=== PATIENT | male | born 1950 | race Caucasian/White ===

== ENCOUNTER 2016-12-27 09:50 | Emergency (ER) | payer OTHER ==
[~2016-12-27] VITALS: Ht 175.3 cm; Wt 90.1 kg
[~2016-12-27 09:50] MED LIST: Z.0.NO CURRENT MEDS
[2016-12-27 09:59] VITALS: BP 124/58; PULSE 90; RESP 18; TEMP 98.8; O2SAT 97
--- NOTE | 2016-12-27 10:41 | PD ---
HPI Chief Complaint: Musculoskeletal Complaint Time Seen by Provider: 10:26 Travel History International Travel<30 days: No Contact w/Intl Traveler<30days: No Traveled to known affect area: No History of Present Illness HPI 66yo M with no significant PMH presents to the ED with c/o left knee pain. Pt was walking to his car yesterday when he had pain in back of his knee that came around to the front. Does not remember twisting it. Denies any fall. States it was more swollen and swelling has improved with ice. Denies any fever, erythema, chest pain, sob, n/v, abdominal pain, focal weakness or numbness. Denies any history of gout. Took exedrin and it is starting to help. PFSH Past Medical History Medical History: Denies Significant Hx Heart Rhythm Problems: No Cardiac Catheterization: No Cardiovascular Problems: Yes High Cholesterol: No Congestive Heart Failure: No Diabetes: No Hypertension: No Musculoskeletal: Yes (scoliosis) Myocardial Infarction: No Past Surgical History Abdominal Surgery: Yes (HERNIORRHAPHY) Coronary Artery Bypass Graft: No Other Surgery: Yes (right hernia repair) Social History Alcohol Use: No Tobacco Use: No Substance Use: No Allergies-Medications (Allergen,Severity, Reaction): Coded Allergies: No Known Allergies (Verified , 12/27/16) Reported Meds & Prescriptions Reported Meds & Active Scripts Active Ibuprofen 600 Mg Tab 600 Mg PO Q8H PRN 5 Days Review of Systems Except as stated in HPI: all other systems reviewed are Neg Physical Exam Narrative GENERAL: 66yo M in mild distress. SKIN: Focused skin assessment warm/dry. HEAD: Atraumatic. Normocephalic. CARDIOVASCULAR: Regular rate and rhythm. No murmur appreciated. RESPIRATORY: No accessory muscle use. Clear to auscultation. Breath sounds equal bilaterally. GASTROINTESTINAL: Abdomen soft, non-tender, nondistended. MUSCULOSKELETAL: Left knee: +Edema. No erythema. Mildly warmer than right. Decreased ROM due to pain. Distal pulses intact. Sensation intact. NEUROLOGICAL: Awake and alert. No obvious cranial nerve deficits. Motor grossly within normal limits. Normal speech. PSYCHIATRIC: Appropriate mood and affect; insight and judgment normal. Data Data Last Documented VS Vital Signs Date Time Temp Pulse Resp B/P (MAP) Pulse Ox O2 Delivery O2 Flow Rate FiO2 12/27/16 16:52 69 16 68/ 97 Room Air 12/27/16 14:31 98.6 Orders Orders Knee, Ltd (1 Or 2vws) (12/27/16 ) Ketorolac Inj (Toradol Inj) (12/27/16 10:45) Lidocaine 1% Inj (50 Ml) (Xylocaine 1% I (12/27/16 11:45) Synovial Fl Cell Count + Diff (12/27/16 11:43) Synovial Fluid Crystals (12/27/16 11:43) Synovial Fluid Glucose (12/27/16 11:43) Synovial Fluid Total Protein (12/27/16 11:43) Complete Blood Count With Diff (12/27/16 12:29) Basic Metabolic Panel (Bmp) (12/27/16 12:29) Fluid Culture And Gram Stain (12/27/16 14:38) Labs Laboratory Tests Test 12/27/16 12:25 12/27/16 12:35 Synovial Fluid Color YELLOW Synovial Fluid Appearance MARKED Synovial Fluid WBC 81898 /MM3 Synovial Fluid RBC 160 /MM3 Synovial Fluid Neutrophils 98 % Synovial Fluid Lymphocytes 1 % Synovial Fluid Monocytes 1 % Synovial Fluid Crystals NONE White Blood Count 17.3 TH/MM3 Red Blood Count 4.81 MIL/MM3 Hemoglobin 14.4 GM/DL Hematocrit 42.5 % Mean Corpuscular Volume 88.3 FL Mean Corpuscular Hemoglobin 29.9 PG Mean Corpuscular Hemoglobin Concent 33.8 % Red Cell Distribution Width 11.9 % Platelet Count 231 TH/MM3 Mean Platelet Volume 7.9 FL Neutrophils (%) (Auto) 85.8 % Lymphocytes (%) (Auto) 5.6 % Monocytes (%) (Auto) 8.1 % Eosinophils (%) (Auto) 0.1 % Basophils (%) (Auto) 0.4 % Neutrophils # (Auto) 14.8 TH/MM3 Lymphocytes # (Auto) 1.0 TH/MM3 Monocytes # (Auto) 1.4 TH/MM3 Eosinophils # (Auto) 0.0 TH/MM3 Basophils # (Auto) 0.1 TH/MM3 CBC Comment DIFF FINAL Differential Comment Blood Urea Nitrogen 14 MG/DL Creatinine 1.00 MG/DL Random Glucose 124 MG/DL Calcium Level 9.0 MG/DL Sodium Level 136 MEQ/L Potassium Level 3.9 MEQ/L Chloride Level 102 MEQ/L Carbon Dioxide Level 27.4 MEQ/L Anion Gap 7 MEQ/L Estimat Glomerular Filtration Rate 74 ML/MIN MDM Medical Decision Making Medical Screen Exam Complete: Yes Emergency Medical Condition: Yes Differential Diagnosis Gout vs. meniscal tear vs. inflammatory joint vs. septic joint Narrative Course 66yo M with sudden onset left knee pain. Denies any trauma or fever. Left knee is swollen with joint effusion and slightly warmer than right. Impression is gout or an inflammatory process. Xray left knee showed joint effusion. No acute fracture. Pt has never had gout. Arthrocentesis was performed and obtained yellow synovial fluid. Pt given toradol and his pain has improved markedly. Pt is now able to fully flex and extend left knee. Labs reviewed, leukocytosis at 17.3. No fever or tachycardia. BMP unremarkable. Synovial fluid showed WBC 10562 which is elevated but is in the inflammatory range. No crystals seen. Gram stain showed no organisms so pt do not have septic arthritis. Clinically pt does not appear to have septic arthritis, is well appearing and has no fever. Pt now has full range of motion in left knee. Able to ambulate. Will have pt follow up with primary care physician. Return precautions given. Procedures Procedure Narrative Arthrocentesis of left knee: Consent was obtained and left knee was cleaned with betadine and sterily draped. 4cc of 1% lidocaine was used to anesthesize medial patella region and 26cc of yellow synovial fluid obtained. Pt tolerated procedure well. Diagnosis Primary Impression: Left knee pain Qualified Codes: M25.562 - Pain in left knee Patient Instructions: General Instructions Departure Forms: Tests/Procedures Additional Instructions: Please follow up with your primary care physician in 3-7 days. Return to the ED if symptoms worsen. Med/Other Pt SpecificInfo: Prescription(s) given Scripts Ibuprofen (Ibuprofen) 600 Mg Tab 600 MG PO Q8H Y for PAIN for 5 Days, TAB 0 Refills Prov: WahlMirna panchalderek PEREZ 12/27/16 Disposition: 01 DISCHARGE HOME Condition: Stable Alise Wahl DO Dec 27, 2016 10:41
[2016-12-27] MEDS ORDERED: KETOROLAC TROMETHAMINE 60 MG/2 ML (IM) VIAL IM ONE (10:45)
--- NOTE | 2016-12-27 11:18 | RADRPT ---
EXAM DATE/TIME: 12/27/2016 11:06 [facility] COMPARISON: No previous studies available for comparison. INDICATIONS : Left knee pain and swelling, no known injury. MEDICAL HISTORY : None. SURGICAL HISTORY : None. ENCOUNTER: Initial ACUITY: 2 days PAIN SCORE: 8/10 LOCATION: Left knee FINDINGS: There is no evidence of acute fracture. Bony mineralization is normal. There is moderate osteoarthrit is with joint space narrowing and marginal osteophyte formation in the lateral tibiofemoral compartm ent. A suprapatellar joint effusion is present. CONCLUSION: 1. Joint effusion. There is no evidence of acute fracture. Osteoarthritis Anthony Richards MD on December 27, 2016 at 11:14 Board Certified Radiologist. This report was verified electronically.
[2016-12-27] MEDS ORDERED: LIDOCAINE HCL 1% 50 ML VIAL INFIL ONE (11:45)
[2016-12-27 12:45] LABS: AUTOMATED NEUTROPHIL # 14.8 TH/MM3 (1.8-7.7); BASOPHIL # 0.1 TH/MM3 (0-0.2); BASOPHIL % 0.4 % (0.0-2.0); EOSINOPHIL % 0.1 % (0.0-4.0); HEMATOCRIT 42.5 % (39.0-51.0); LYMPH % 5.6 % (9.0-44.0); MEAN CELL VOLUME 88.3 FL (80.0-100.0); MEAN CORPUSCULAR HEMOGLOBIN 29.9 PG (27.0-34.0); MEAN CORPUSCULAR HGB CONC 33.8 % (32.0-36.0); MONO % 8.1 % (0.0-8.0); NEUT % 85.8 % (16.0-70.0); PLATELET COUNT 231 TH/MM3 (150-450); RED BLOOD COUNT 4.81 MIL/MM3 (4.50-5.90); RED CELL DISTRIBUTION WIDTH 11.9 % (11.6-17.2); WHITE BLOOD COUNT 17.3 TH/MM3 (4.0-11.0)
[2016-12-27 12:49] LABS: HEMO FLAGS DIFF FINAL
[2016-12-27 12:55] LABS: POTASSIUM 3.9 MEQ/L (3.5-5.1)
[2016-12-27 12:57] LABS: BICARBONATE 27.4 MEQ/L (21.0-32.0)
[2016-12-27 13:14] LABS: WBC, SYNOVIAL FLUID 21100 /MM3 (0-200)
[2016-12-27 14:31] VITALS: BP 102/45; PULSE 73; RESP 16; TEMP 98.6; O2SAT 97
[2016-12-27] MEDS ORDERED: IBUP-232 PO (16:23)
[2016-12-27 16:52] VITALS: BP_SYST 68; PULSE 69; RESP 16; O2SAT 97
[2016-12-29 23:55] LABS: TOTAL PROTEIN, SYNOVIAL FLUID 3.7 g/dL (1.0-3.0)
== END 2016-12-27 16:54 | disposition home or self-care (01) ==
LOC: PHED 09:50
DX: M25.562 Pain in left knee (principal); M25.462 Effusion, left knee
CPT/HCPCS: 20610; 73560; 80048; 82945; 84157; 85025; 87070; 87205; 89051; 89060; 96372; 99284; J1885